=== PATIENT | male | born 1990 | race Caucasian/White ===

== ENCOUNTER 2017-02-05 08:01 | Emergency (ER) | payer SELFPAY ==
[2017-02-05 08:09] VITALS: O2SAT 100
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
[2017-02-05 09:15] VITALS: BP 115/77; PULSE 72; RESP 17; TEMP 98.2
--- NOTE | 2017-02-05 10:28 | RAD ---
PROCEDURE: Right Foot Radiographs. HISTORY: Pain COMPARISON: None. FINDINGS: BONES: Bone alignment and mineralization are normal. There is no acute displaced fracture JOINTS: Normal. SOFT TISSUES: Normal. OTHER FINDINGS: None. IMPRESSION: No acute fracture or dislocation.
== END 2017-02-05 09:15 | disposition home or self-care (01) ==
LOC: C.ER 08:01
DX: S93.601A Unspecified sprain of right foot, initial encounter (principal); V19.88XA Pedal cyclist (driver) (passenger) injured in other specified transport accidents, initial encounter; Y93.55 Activity, bike riding; Y92.410 Unspecified street and highway as the place of occurrence of the external cause

== ENCOUNTER 2017-06-28 19:36 | Emergency (ER) | payer SELFPAY ==
[2017-06-28 19:59] VITALS: RESP 20; O2SAT 98
--- NOTE | 2017-06-28 20:19 | C.PDOC ---
History Of Present Illness 26 year old male presents to the ED for evaluation of left testicular discomfort around the epididymal area for the past 6 months. Patient reports his pain has worsened for the past few weeks compared to what was before. Patient denies high risk sexual activity, hematospermi, dysuria, hematuria, back pain. Time Seen by Provider: 06/28/17 20:17 Chief Complaint (Nursing): Male Genitourinary History Per: Patient History/Exam Limitations: no limitations Onset/Duration Of Symptoms: Days Current Symptoms Are (Timing): Still Present Severity: Mild Quality Of Discomfort: "Pain" Associated Symptoms: denies: Fever, Nausea, Vomiting, Urinary Symptoms Alleviating Factors: None Recent travel outside of the [place]: No Additional History Per: Patient Past Medical History Reviewed: Historical Data, Nursing Documentation, Vital Signs Vital Signs: Last Vital Signs Temp 98.2 F 06/28/17 19:55 Pulse 72 06/28/17 19:55 Resp 20 06/28/17 19:55 BP 119/77 06/28/17 19:55 Pulse Ox 98 06/28/17 22:02 - Medical History PMH: No Chronic Diseases Surgical History: No Surg Hx Family History: States: Unknown Family Hx - Social History Hx Alcohol Use: Yes Hx Substance Use: No - Immunization History Hx Tetanus Toxoid Vaccination: No Hx Influenza Vaccination: No Hx Pneumococcal Vaccination: No Review Of Systems Constitutional: Negative for: Fever, Chills Cardiovascular: Negative for: Chest Pain, Palpitations Respiratory: Negative for: Cough, Shortness of Breath Gastrointestinal: Negative for: Nausea, Vomiting, Abdominal Pain Genitourinary: Positive for: Other (Testicular pain). Negative for: Dysuria, Hematuria, Penile Discharge Musculoskeletal: Negative for: Back Pain Skin: Negative for: Rash Neurological: Negative for: Weakness, Numbness Physical Exam - Physical Exam Appears: Non-toxic, No Acute Distress Skin: Normal Color, Warm, Dry Head: Atraumatic, Normacephalic Nose: No Discharge, No Deformity Oral Mucosa: Moist Neck: Normal ROM, Supple Chest: Symmetrical Cardiovascular: Rhythm Regular, No Murmur Respiratory: Normal Breath Sounds, No Rales, No Rhonchi, No Wheezing Gastrointestinal/Abdominal: Soft, No Tenderness, No Distention, No Rebound Male Genital: Testicular Tenderness (Mild Left epididymis), No Inguinal Tenderness, No Scrotal Swelling, Other (No inguinal lymphadenopathy, no hernia) Extremity: Normal ROM, No Pedal Edema, No Calf Tenderness, No Swelling Neurological/Psych: Oriented x3, Normal Speech, Normal Cognition Gait: Steady ED Course And Treatment - Laboratory Results Lab Interpretation: Normal (ua 3 WBC's, GC/Chlamydia pending) O2 Sat by Pulse Oximetry: 98 (On RA) Pulse Ox Interpretation: Normal - CT Scan/US US testicular Other Rad Studies (CT/US): Interpreted By Me, Read By Radiologist, Radiology Report Reviewed CT/US Interpretation: IMPRESSION: 1. No intratesticular lesions or testicular torsion. 2. Tiny bilateral epididymal cysts. 3. Small bilateral hydroceles. Medical Decision Making Medical Decision Making: Plan: * STD tests * UA * Testicular US chronic L epididimal localized firmness and discomfort for "years" normal urine GC/Chlamydia pending Testicular US neg. Defer Abx until GC/Chlamydia returns with LOW susp of STD/Epididimytis as US neg for epididymitis. outpatient f/u with Urology this week Disposition Doctor Will See Patient In The: Office Counseled Patient/Family Regarding: Studies Performed, Diagnosis - Disposition Disposition: HOME/ ROUTINE Disposition Time: 22:06 Condition: GOOD Forms: [employer] (Czech) - Clinical Impression Clinical Impression: Testicular discomfort - Scribe Statement The provider has reviewed the documentation as recorded by the Scribe Geoff Jara All medical record entries made by the Scribe were at my direction and personally dictated by me. I have reviewed the chart and agree that the record accurately reflects my personal performance of the history, physical exam, medical decision making, and the department course for this patient. I have also personally directed, reviewed, and agree with the discharge instructions and disposition.
[2017-06-28 20:59] LABS: RBC URINE 4 /hpf (0-3); URINE BILIRUBIN NEGATIVE (NEGATIVE); URINE BLOOD NEGATIVE (NEGATIVE); URINE COLOR Yellow (YELLOW); URINE GLUCOSE (UA) NORMAL (Normal); URINE KETONE NEGATIVE (NEGATIVE); URINE LEUKOCYTE ESTERASE NEG Leu/uL (Negative); URINE PROTEIN NEGATIVE (NEGATIVE); URINE UROBILINOGEN NORMAL mg/dL (0.2-1.0); WBC URINE 3 /hpf (0-5)
--- NOTE | 2017-06-28 22:00 | US ---
EXAM: US Scrotum CLINICAL HISTORY: 26 years old, male; Pain; Scrotum pain; Additional info: L epididimal discomfort TECHNIQUE: Real-time ultrasound of the scrotum with color Doppler and image documentation. COMPARISON: No relevant prior studies available. FINDINGS: Right testicle: Right testicle measures 4.8 x 2.1 x 3.2 CM. No torsion. Left testicle: Left testicle measures 4.8 x 2.3 x 3.3 CM. No torsion. Epididymides: Right epididymal cysts measuring 6.6 and 7.2 mm. Scrotum: Small bilateral hydroceles. IMPRESSION: 1. No intratesticular lesions or testicular torsion. 2. Tiny bilateral epididymal cysts. 3. Small bilateral hydroceles.
[2017-06-28 22:48] VITALS: BP 120/77; PULSE 89; TEMP 97.8
== END 2017-06-28 22:47 | disposition home or self-care (01) ==
LOC: C.ER 19:36
DX: N50.812 Left testicular pain (principal)